=== PATIENT | female | born 1975 | race African-American/Black ===

== ENCOUNTER 2017-05-15 11:36 | Emergency (ER) | payer SELFPAY ==
[~2017-05-15] VITALS: Ht 172.7 cm; Wt 97.7 kg
[2017-05-15 11:37] VITALS: BP 154/89; PULSE 81; RESP 14; TEMP 98.2; O2SAT 98
[2017-05-15] MEDS ORDERED: ROBA500T PO (13:28)
[2017-05-15] MEDS ORDERED: IBUP1TAB7 PO (13:28)
--- NOTE | 2017-05-15 13:29 | PD ---
HPI Chief Complaint: Back/ Neck Pain or Injury Time Seen by Provider: 13:22 Travel History International Travel<30 days: No Contact w/Intl Traveler<30days: No Traveled to known affect area: No History of Present Illness HPI 42-year-old female presents emergency Department with complaint of right lower back pain that radiates to her right thigh 2 days after bending over. Has history of similar low back pain and radiation of pain to 5 years ago. Denies new or recent injury. Denies encopresis, incontinence, saddle anesthesias. Denies IV drug use, cancer. Denies abdominal pain, fevers, vomiting. Denies dysuria. Reports paresthesias to her thigh at times. Otherwise denies paresthesias, loss of sensation, decreased range motion, decreased strength to all extremities. Denies difficulty ambulating. Pain is worse with standing up straight. Has taken ibuprofen for symptom management. Symptoms are mild in severity. No known allergies. Does not remember the name of her primary care provider. Denies significant past medical history. Has no other medical complaints. No other modifying factors or associated signs and symptoms. PFSH Past Medical History ?: Not LMP: 05/08/2017 Social History Tobacco Use: No Allergies-Medications (Allergen,Severity, Reaction): Coded Allergies: No Known Allergies (Unverified , 05/15/17) Reported Meds & Prescriptions Reported Meds & Active Scripts Active Robaxin (Methocarbamol) 500 Mg Tab 500 Mg PO QID PRN Ibuprofen 800 Mg Tab 800 Mg PO Q6HR PRN Review of Systems Except as stated in HPI: all other systems reviewed are Neg Physical Exam Narrative GENERAL: Well-nourished, well-developed black female patient, in no acute distress; afebrile, nontoxic-appearing SKIN: Warm and dry. HEAD: Atraumatic. Normocephalic. EYES: Pupils equal and round. No scleral icterus. No injection or drainage. ENT: Mucosa pink and moist. Airway patent. NECK: Trachea midline. CARDIOVASCULAR: Regular rate. RESPIRATORY: No accessory muscle use. GASTROINTESTINAL: Rounded. MUSCULOSKELETAL: Bilateral lower extremities supple and non-tense with 2+ pedal pulses and sensory intact; with full range of motion and 5/5 strength. 2 + DTRs bilaterally. Active dorsiflexion and extension of bilateral feet. Bilateral straight leg raise is negative for low back pain. Ambulatory in room with normal gait. Sitting up in bed at 90. No obvious deformities. No clubbing. No cyanosis. No edema. BACK: No midline point tenderness on palpation of the lumbar spine. Tenderness on palpation of right lumbar iliosacral area. No obvious deformities. NEUROLOGICAL: Awake and alert. Oriented 3. No obvious cranial nerve deficits. Motor grossly within normal limits. Normal speech. Moves all extremities. 5/5 strength to all extremities. Sensory intact. PSYCHIATRIC: Appropriate mood and affect; insight and judgment normal. Data Data Last Documented VS Vital Signs Date Time Temp Pulse Resp B/P (MAP) Pulse Ox O2 Delivery O2 Flow Rate FiO2 05/15/17 11:37 98.2 81 14 154/89 (110) 98 Orders Orders Ed Discharge Order (05/15/17 13:26) Methocarbamol (Robaxin) (05/15/17 13:30) Ibuprofen (Motrin) (05/15/17 13:30) [facility] Medical Decision Making Medical Screen Exam Complete: Yes Emergency Medical Condition: Yes Medical Record Reviewed: Yes Differential Diagnosis Low back strain, acute low back pain, sciatica Narrative Course 42-year-old female physical examination with right-sided low back pain with sciatica. Denies encopresis, incontinence, saddle anesthesias. Denies IV drug use, cancer. Neuro exam unremarkable. Patient afebrile and nontoxic- appearing. Denies fever, vomiting. Robaxin and ibuprofen administered in the ER. Robaxin and ibuprofen prescribed for home. Instructed patient to follow up with primary care provider. Patient verbalizes understanding and agreement with treatment plan. Patient is medically cleared and stable for discharge. Discussed reasons to return to the emergency department. Patient agrees with treatment plan. The patients vital signs are stable and the patient is stable for outpatient follow-up and treatment. Patient discharged home, stable and in no acute distress. Diagnosis Primary Impression: Right-sided low back pain with sciatica Qualified Codes: M54.41 - Lumbago with sciatica, right side Referrals: Primary Care Physician Patient Instructions: Acute Low Back Pain (ED), General Instructions, Sciatica (ED) Additional Instructions: Tylenol or ibuprofen as directed and as needed for pain Robaxin as prescribed and as needed for muscle spasms Heating pad and/or ice to affected area to reduce pain Avoid aggravating activities; increase activity as tolerated Follow-up with primary care provider Return to emergency department immediately with worsening of symptoms Med/Other Pt SpecificInfo: Prescription(s) given Scripts Methocarbamol (Robaxin) 500 Mg Tab 500 MG PO QID Y for MUSCLE SPASM, #30 TAB 0 Refills Prov: Janice Cee 05/15/17 Ibuprofen (Ibuprofen) 800 Mg Tab 800 MG PO Q6HR Y for PAIN, #30 TAB 0 Refills Prov: Janice Cee 05/15/17 Disposition: 01 DISCHARGE HOME Condition: Stable Janice Cee May 15, 2017 13:28
[2017-05-15] MEDS ORDERED: IBUPROFEN 800 MG TAB PO ONE (13:30)
[2017-05-15] MEDS ORDERED: METHOCARBAMOL 500 MG TAB PO ONE (13:30)
== END 2017-05-15 13:39 | disposition home or self-care (01) ==
LOC: NEPK 11:36
DX: M54.41 Lumbago with sciatica, right side (principal)
CPT/HCPCS: 99283